=== PATIENT | male | born 1975 | race Caucasian/White ===

== ENCOUNTER 2018-02-23 14:33 | Emergency (ER) | payer MEDICAID ==
--- NOTE | 2018-02-23 15:33 | XR ---
EXAMINATION TYPE: XR chest 2V DATE OF EXAM: 02/23/2018 COMPARISON: NONE HISTORY: Shortness of breath TECHNIQUE: Frontal and lateral views of the chest are obtained. FINDINGS: There is no focal air space opacity, pleural effusion, or pneumothorax seen. The cardiac silhouette size is within normal limits. The osseous structures are intact. IMPRESSION: No acute cardiopulmonary process.
[2018-02-23] MEDS ORDERED: IBUPROFEN 600 MG TAB PO STA (15:50)
[2018-02-23] MEDS ORDERED: IPRATROPIUM-ALBUTEROL 3 ML NEB INHALATION STA (15:51)
--- NOTE | 2018-02-23 15:56 | ED ---
URI HPI - General Chief Complaint: Upper Respiratory Infection Stated Complaint: fever/SOB Time Seen by Provider: 02/23/18 15:43 Source: patient, RN notes reviewed Mode of arrival: ambulatory Limitations: no limitations - History of Present Illness Initial Comments: 42-year-old male presents emergency from chief complaint upper respiratory cold- like symptoms. Patient states that he's had a cough and fever last couple days. Patient states his cough is productive at times. Patient denies any ear pain. He does admit to having a sore throat when it initially started but had resolved. Patient denies abdominal pain. Patient denies any chest pain. He states that he hears some rattling in his chest. Patient was seen at urgent care sent to the hospital for chest x-ray because his insurance is through the hospital. Patient states he wanted results came the emergency department. - Related Data Home Medications Medication Instructions Recorded Confirmed Amoxic-Pot Clav 875-125Mg 1 tab PO Q12HR 02/23/18 02/23/18 [Augmentin 875-125] Ibuprofen [Motrin Ib] 400 mg PO Q6H PRN 02/23/18 02/23/18 Previous Rx's Medication Instructions Recorded Albuterol Sulfate [Proair Hfa] 1 - 2 puff INHALATION Q4HR PRN #1 02/23/18 inhaler predniSONE 50 mg PO DAILY #5 tab 02/23/18 Allergies Allergy/AdvReac Type Severity Reaction Status Date / Time No Known Allergies Allergy Verified 02/23/18 15:52 Review of Systems ROS Statement: Those systems with pertinent positive or pertinent negative responses have been documented in the HPI. ROS Other: All systems not noted in ROS Statement are negative. Past Medical History Past Medical History: No Reported History History of Any Multi-Drug Resistant Organisms: MRSA Date of last positivie culture/infection: 1999 MDRO Source:: Right toe Past Surgical History: No Surgical Hx Reported Past Psychological History: No Psychological Hx Reported Smoking Status: Never smoker Past Alcohol Use History: None Reported Past Drug Use History: None Reported General Exam Limitations: no limitations General appearance: alert, in no apparent distress Head exam: Present: atraumatic, normocephalic, normal inspection Eye exam: Present: normal appearance, PERRL, EOMI. Absent: scleral icterus, conjunctival injection, periorbital swelling ENT exam: Present: normal exam, normal oropharynx, mucous membranes moist, TM's normal bilaterally, normal external ear exam Neck exam: Present: normal inspection, full ROM. Absent: tenderness, meningismus, lymphadenopathy Respiratory exam: Present: wheezes. Absent: normal lung sounds bilaterally, respiratory distress, rales, rhonchi, stridor Cardiovascular Exam: Present: regular rate, normal rhythm, normal heart sounds. Absent: systolic murmur, diastolic murmur, rubs, gallop, clicks Course Vital Signs 02/23/18 02/23/18 02/23/18 14:49 16:14 16:25 Temperature 100.6 F H Pulse Rate 75 96 94 Respiratory 18 16 16 Rate Blood Pressure 142/85 O2 Sat by Pulse 96 Oximetry Medical Decision Making - Medical Decision Making 42-year-old male presented for upper extremity infection. Chest x-ray shows no acute abnormality. Patient was given antibiotics outpatient. Patient has bronchitis will be given steroids, pro-air inhaler. Patient felt better after DuoNeb treatment in emergency department. Disposition Clinical Impression: Acute bronchitis Disposition: HOME SELF-CARE Condition: Stable Instructions: Acute Bronchitis (ED) Additional Instructions: Please return to the Emergency Department if symptoms worsen or any other concerns. Prescriptions: Albuterol Sulfate [Proair Hfa] 1 - 2 puff INHALATION Q4HR PRN #1 inhaler PRN Reason: difficulty in breathing predniSONE 50 mg PO DAILY #5 tab Is patient prescribed a controlled substance at d/c from ED?: No Referrals: None,Stated [Primary Care Provider] - 1-2 days Time of Disposition: 16:45
[2018-02-23 17:34] VITALS: BP 112/64; PULSE 82; RESP 20; TEMP 98.8
== END 2018-02-23 17:33 | disposition home or self-care (01) ==
LOC: EC 14:33
DX: J20.9 Acute bronchitis, unspecified (principal); Z86.14 Personal history of Methicillin resistant Staphylococcus aureus infection
CPT/HCPCS: 71046; 94640; 99283

== ENCOUNTER 2021-11-11 10:01 | Day surgery (SDC) | payer OTHER ==
[2021-11-09 15:13] VITALS: BMI 33.6
--- NOTE | 2021-11-11 08:17 | P.GSHP ---
History of Present Illness H&P Date: 11/11/21 CHIEF COMPLAINT: Colon screen HISTORY OF PRESENT ILLNESS: The patient is a 46-year-old male who presents for colon screen. Lower endoscopy was offered for further evaluation and management. PAST MEDICAL HISTORY: Please see list. PAST SURGICAL HISTORY: Please see list. MEDICATIONS: Please see list. ALLERGIES: Please see list. SOCIAL HISTORY: No illicit drug use FAMILY HISTORY: No reports of Crohn disease or ulcerative colitis. REVIEW OF ORGAN SYSTEMS: CONSTITUTIONAL: No reports of fevers or chills. PHYSICAL EXAM: VITAL SIGNS: Stable GENERAL: Well-developed pleasant in no acute distress. HEENT: No scleral icterus. Extraocular movements grossly intact. Moist buccal mucosa. NECK: Supple without lymphadenopathy. CHEST: Unlabored respirations. Equal bilateral excursions. CARDIOVASCULAR: Regular rate and rhythm. Distal 2+ pulses. ABDOMEN: Soft, nontender, nondistended. MUSCULOSKELETAL: No clubbing, cyanosis, or edema. ASSESSMENT: 1. Colon screen. PLAN: 1. Recommend proceeding with a lower endoscopy Past Medical History Past Medical History: No Reported History History of Any Multi-Drug Resistant Organisms: MRSA Date of last positivie culture/infection: 1999 MDRO Source:: Right toe Past Surgical History: No Surgical Hx Reported Past Anesthesia/Blood Transfusion Reactions: No Reported Reaction Smoking Status: Former smoker - Past Family History Mother Family Medical History: No Reported History Medications and Allergies Home Medications Medication Instructions Recorded Confirmed Type Glucosam/Tanvir-Msm1/C/Zion/Bosw 1 each PO DAILY 11/09/21 11/09/21 History [Glucosamine-Chondroitin Tablet] Multivitamins, Thera [Multivitamin 1 tab PO DAILY 11/09/21 11/09/21 History (formulary)] Allergies Allergy/AdvReac Type Severity Reaction Status Date / Time No Known Allergies Allergy Verified 11/09/21 15:06
[~2021-11-11 10:01] MED LIST: LACTATED RINGERS 1,000 ML IV SCH; LIDOCAINE 1% (10MG/ML) FOR IV START INTRADERMA PRN
[2021-11-11 11:11] VITALS: TEMP 96.2
[2021-11-11] MEDS ORDERED: PROPOFOL 10 MG/ML 20 ML VIAL IV ONE (11:36)
[2021-11-11] MEDS ORDERED: LIDOCAINE 1% INJ 10MG/ML (20 ML MDV) ONE (11:36)
--- NOTE | 2021-11-11 11:53 | P.PCN ---
Date of Procedure: 11/11/21 Description of Procedure: PREOPERATIVE DIAGNOSIS: Colonoscopy screening. POSTOPERATIVE DIAGNOSIS: Colonoscopy screening. Diverticulosis, scattered. OPERATION: Colonoscopy to the cecum, ileocecal valve and appendiceal orifice. SURGEON: Halina Castañeda MD. ANESTHESIA: MAC. INDICATIONS: The patient is a 59-year-old female who presents for colonoscopy screening. Benefits and risks were described and informed consent was obtained. DESCRIPTION OF PROCEDURE: The patient had undergone Sutab prep. The patient had been brought into the operating room and laid in the left lateral decubitus position. After adequate intravenous sedation, the rectum was examined with 2% lidocaine jelly. No external hemorrhoids were encountered. The rectal tone was within normal limits. No lesions were palpated in the rectal vault. An Olympus colonoscope was advanced until the cecum, ileocecal valve and appendiceal orifice were clearly viewed. The prep was excellent. Scattered diverticulosis was encountered. No colonic polyps were found. No evidence of focal colitis was found. Retroflexion of the scope demonstrated grade 1 internal hemorrhoids without active bleeding or inflammation. The colon was desufflated. The patient had tolerated the procedure well. Withdrawal time was over 6 minutes. FINDINGS: Aronchick preparation quality scale (1-5) Internal hemorrhoids, grade 1 No external prolapsed hemorrhoids. No arteriovenous malformations. No adenomatous polyps. No focal colitis. RECOMMENDATIONS: Lower endoscopy every 10 years per screening guidelines; however down to 5 years with family history of colon polyps or cancer. Plan - Discharge Summary New Discharge Prescriptions: Continue Multivitamins, Thera [Multivitamin (formulary)] 1 tab PO DAILY Glucosam/Tanvir-Msm1/C/Zion/Bosw [Glucosamine-Chondroitin Tablet] 1 each PO DAILY Discharge Medication List Glucosam/Tanvir-Msm1/C/Zion/Bosw [Glucosamine-Chondroitin Tablet] 1 each PO DAILY 11/09/21 [History] Multivitamins, Thera [Multivitamin (formulary)] 1 tab PO DAILY 11/09/21 [History] Follow up Appointment(s)/Referral(s): Halina Castañeda MD [STAFF PHYSICIAN] - As Needed Patient Instructions/Handouts: Diverticulosis Diet (GEN), Diverticulosis (DC), *Surgery [facility] - (Anesthesia) Endoscopy Discharge Instructions Activity/Diet/Wound Care/Special Instructions: Repeat colonoscopy in 10 years, 2031 Discharge Disposition: HOME SELF-CARE
[2021-11-11 12:17] VITALS: BP 123/78; PULSE 66; RESP 20
== END 2021-11-11 12:20 | disposition home or self-care (01) ==
LOC: ORWHC2ENDO 10:01
PROVIDERS: ATTEND Surgery Plastic and Reconstructive Surgery
DX: Z12.11 Encounter for screening for malignant neoplasm of colon (principal); K57.30 Diverticulosis of large intestine without perforation or abscess without bleeding; K64.0 First degree hemorrhoids; Z83.71 Family history of colonic polyps; Z86.14 Personal history of Methicillin resistant Staphylococcus aureus infection; Z98.890 Other specified postprocedural states
CPT/HCPCS: J2001; J2704; G0105; 45378

== ENCOUNTER → 2024-04-04 | Outpatient (CLI) | payer OTHER ==
--- NOTE | 2024-04-04 12:55 | XR ---
EXAMINATION TYPE: XR lumbar spine 2 or 3V DATE OF EXAM: 04/04/2024 11:57 AM CLINICAL INDICATION:Male, 49 years old with history of M54.50 LOW BACK PAIN, R07.81 PLEURODYNIA; [facility] COMPARISON: None TECHNIQUE: XR lumbar spine 2 or 3V - Frontal, lateral and coned in L5-S1 lateral views of the spine. FINDINGS: No evidence of any acute osseous pathology. No evidence of loss of vertebral body height i s seen. There is normal alignment of the lumbar vertebral bodies. Scattered disc space narrowing. Mul tilevel marginal osteophyte formation throughout the visualized spine. There is facet joint arthropat hy throughout the spine. Scattered at least mild neural foraminal stenosis. IMPRESSION: 1. No acute fracture. 2. Moderate multilevel disc degeneration.
--- NOTE | 2024-04-04 12:56 | XR ---
EXAMINATION TYPE: XR ribs RT w pa chest xray DATE OF EXAM: 04/04/2024 11:57 AM CLINICAL INDICATION:Male, 49 years old with history of M54.50 LOW BACK PAIN, R07.81 PLEURODYNIA; [facility] COMPARISON: 02/23/2018 TECHNIQUE: XR ribs RT w pa chest xray; Frontal and oblique views of the ribs with frontal chest radio graph. FINDINGS: There is cortical step-off in separation of the right rib 12. No additional fractures defin itively visualized. No evidence of fracture. Overall, the lungs are clear. The cardiac silhouette is normal in size. The remaining osseous structures are intact. IMPRESSION: Acute fracture of right rib 12.
== END | disposition home or self-care (01) ==
LOC: RADXRMAIN 11:28
PROVIDERS: ATTEND Nurse Practitioner Family
DX: M51.36 Other intervertebral disc degeneration, lumbar region (principal); S22.31XA Fracture of one rib, right side, initial encounter for closed fracture; R07.81 Pleurodynia
CPT/HCPCS: 72100